=== PATIENT | female | born 1995 | race Two or more races ===

== ENCOUNTER 2020-07-09 11:38 | Emergency (ER) | payer SELFPAY ==
[~2020-07-09] VITALS: Ht 165.1 cm; Wt 68.0 kg
[2020-07-09 11:59] VITALS: BP 100/81
== END 2020-07-09 15:00 | disposition left against medical advice (07) ==
LOC: EDBD 11:38 → ER 11:38
DX: E16.2 Hypoglycemia, unspecified (principal); Z53.21 Procedure and treatment not carried out due to patient leaving prior to being seen by health care provider